=== PATIENT | female | born 1955 | race Caucasian/White ===

== ENCOUNTER 2016-05-23 10:21 | Outpatient (RCR) | payer MEDICARE, BC, OTHER ==
[~2016-05-23 10:21] MED LIST: AMBIEN10 MG PO; CELEXA20 MG PO; ENBREL50 MG/ML SC; FOLIC ACID1 MG PO; IRON325 M1 PO; METHOTREXATE S2.5 MG PO; MULTI VITAMINS1 TAB PO; NATURE'S BLEND400 I1 PO; NORCO 325 MG-51 TA1 PO; ULTRAM50 MG PO; XANAX0.5 MG PO
--- NOTE | 2016-05-23 10:34 | NUR ---
ABN REVIEWED WITH PATIENT AND SIGNATURE RECEIVED. ORIGINAL GIVEN TO BRIA NORTH RN AND COPY PLACED TO OUTPATIENT CHART. COPY ALSO PROVIDED TO PATIENT.
[2016-05-23 10:36] VITALS: BP 112/69
[2016-05-23] MEDS ORDERED: ULTRAM50 M1 PO (10:57)
[2016-05-23] MEDS ORDERED: D-2000 90 MG-201 TAB PO (10:58)
[2016-05-23] MEDS ORDERED: CALCIUM CARBONATE PO (10:59)
[2016-05-23] MEDS ORDERED: CYMBALTA30 M1 PO (11:00)
[2016-05-23] MEDS ORDERED: XANAX0.5 M1 PO (11:00)
[2016-05-23 11:33] VITALS: BP 129/84
[2016-05-23 11:53] VITALS: BP 109/66
[2016-06-06 11:14] VITALS: BP 107/66
[2016-06-06] MEDS ORDERED: LITHIUM 30300 MG/CAP PO (11:19)
[2016-06-06] MEDS ORDERED: METHOTREXATE2.5 M1 PO (11:20)
[2016-06-06 12:13] VITALS: BP 115/69
[2016-07-02 13:35] VITALS: BP 108/69
[2016-07-02 14:39] VITALS: BP 101/54
[2016-08-15 11:14] VITALS: BP 122/78
[2016-08-15 12:28] VITALS: BP 110/70
== END 2016-08-21 | disposition home or self-care (01) ==
LOC: AMSURD
DX: M06.89 Other specified rheumatoid arthritis, multiple sites (principal)
CPT/HCPCS: J0129

== ENCOUNTER 2016-10-15 11:15 | Outpatient (RCR) | payer MEDICARE, OTHER ==
[~2016-10-15] VITALS: Ht 165.1 cm; Wt 72.7 kg
[~2016-10-15 11:15] MED LIST changes: -IRON 100 WITH V1 TAB PO
[2016-10-15 11:35] VITALS: BP 103/61
[2016-10-15 14:35] VITALS: BP 101/60
[2016-11-19 09:58] VITALS: BP 93/54
[2016-11-19 10:18] VITALS: BP 88/51
[2016-12-17 13:46] VITALS: BP 107/59
[2016-12-17 14:40] VITALS: BP 102/61
== END 2017-01-13 | disposition home or self-care (01) ==
LOC: AMSURD
DX: M06.89 Other specified rheumatoid arthritis, multiple sites (principal); F31.81 Bipolar II disorder
CPT/HCPCS: J0129

== ENCOUNTER → 2016-10-15 | Outpatient (CLI) | payer MEDICARE, OTHER ==
[~2016-10-15] MED LIST changes: +CALCIUM CARBONATE PO; +CYMBALTA30 M1 PO; +D-2000 90 MG-201 TAB PO; +IRON 100 WITH V1 TAB PO; +LITHIUM 30300 MG/CAP PO; +METHOTREXATE2.5 M1 PO; +ULTRAM50 M1 PO; +XANAX0.5 M1 PO
== END ==
LOC: LAB 11:12
DX: M06.89 Other specified rheumatoid arthritis, multiple sites (principal); F31.81 Bipolar II disorder

== ENCOUNTER → 2017-01-02 | Outpatient (CLI) | payer MEDICARE, OTHER ==
[2016-12-17 14:40] VITALS: BP 102/61
[~2017-01-02] MED LIST changes: +IRON 100 WITH V1 TAB PO
== END ==
LOC: LAB 16:04
DX: M06.89 Other specified rheumatoid arthritis, multiple sites (principal)

== ENCOUNTER 2017-01-14 14:50 | Outpatient (RCR) | payer MEDICARE, OTHER ==
[~2017-01-14] VITALS: Ht 165.1 cm; Wt 70.5 kg
[2017-01-14 14:24] VITALS: BP 106/67
[~2017-01-14 14:50] MED LIST changes: -IRON 100 WITH V1 TAB PO
[2017-01-14 15:43] VITALS: BP 106/65
[2017-02-25 13:50] VITALS: BP 122/58
[2017-02-25] MEDS ORDERED: IRON 100 WITH V1 TAB PO (14:24)
[2017-02-25 15:21] VITALS: BP 114/70
[2017-03-23 14:49] VITALS: BP 132/86
[2017-03-23 15:51] VITALS: BP 102/75
== END 2017-04-14 | disposition home or self-care (01) ==
LOC: AMSURD
DX: M06.89 Other specified rheumatoid arthritis, multiple sites (principal)
CPT/HCPCS: J0129

== ENCOUNTER 2017-04-24 13:24 | Outpatient (RCR) | payer MEDICARE, OTHER ==
[~2017-04-24] VITALS: Ht 165.1 cm; Wt 68.2 kg
[~2017-04-24 13:24] MED LIST changes: -SENIOR TABS1 EACH PO
[2017-04-24] MEDS ORDERED: SENIOR TABS1 EACH PO (13:41)
[2017-04-24 13:44] VITALS: BP 135/86
[2017-04-24 14:40] VITALS: BP 116/70
[2017-05-22 16:35] VITALS: BP 129/76
[2017-05-22 17:09] VITALS: BP 118/65
[2017-07-13 16:30] VITALS: BP 120/76
[2017-07-13] MEDS ORDERED: LITHIUM CARB300 MG PO (16:39)
[2017-07-13] MEDS ORDERED: LAMOTRIGINE25 M1 PO (16:40)
[2017-07-13 18:09] VITALS: BP 128/65
== END 2017-07-23 | disposition home or self-care (01) ==
LOC: AMSURD
DX: M06.89 Other specified rheumatoid arthritis, multiple sites (principal)
CPT/HCPCS: J0129

== ENCOUNTER → 2017-04-24 | Outpatient (CLI) | payer MEDICARE, OTHER ==
[~2017-04-24] MED LIST changes: +IRON 100 WITH V1 TAB PO; +SENIOR TABS1 EACH PO
== END ==
LOC: LAB 13:26
DX: F31.81 Bipolar II disorder (principal)

== ENCOUNTER 2017-06-24 09:48 | Outpatient (RCR) | payer MEDICARE, OTHER ==
[~2017-06-24 09:48] MED LIST changes: +SENIOR TABS1 EACH PO
== END 2017-06-25 12:51 ==
LOC: OPPGERO 09:48
DX: F31.32 Bipolar disorder, current episode depressed, moderate (principal)

== ENCOUNTER 2017-06-26 09:00 | Outpatient (RCR) | payer MEDICARE, OTHER ==
[2017-07-13] MEDS ORDERED: LITHIUM CARB300 MG PO (16:39)
[2017-07-13] MEDS ORDERED: LAMOTRIGINE25 M1 PO (16:40)
== END 2017-07-24 15:28 ==
LOC: OPPGERO 09:00
DX: F31.32 Bipolar disorder, current episode depressed, moderate (principal)

== ENCOUNTER 2017-07-28 09:00 | Outpatient (RCR) | payer MEDICARE, OTHER ==
[~2017-07-28 09:00] MED LIST changes: +LAMOTRIGINE25 M1 PO; +LITHIUM CARB300 MG PO
[2017-08-17] MEDS ORDERED: ORENCIA250 MG (16:25)
== END 2017-08-26 15:18 ==
LOC: OPPGERO 09:00
DX: F31.32 Bipolar disorder, current episode depressed, moderate (principal)

== ENCOUNTER 2017-08-17 16:16 | Outpatient (RCR) | payer MEDICARE, OTHER ==
[~2017-08-17] VITALS: Ht 165.1 cm; Wt 68.2 kg
[2017-08-17 16:10] VITALS: BP 121/77
[~2017-08-17 16:16] MED LIST changes: +LAMICTAL 100MG100 MG PO; -LAMOTRIGINE25 M1 PO
[2017-08-17] MEDS ORDERED: ORENCIA250 MG (16:25)
[2017-08-17 17:00] VITALS: BP 106/58
[2017-08-17 18:00] VITALS: BP 106/58
[2017-10-21 16:08] VITALS: BP 124/75
[2017-10-21 17:38] VITALS: BP 120/72
== END 2017-11-15 | disposition home or self-care (01) ==
LOC: AMSURD
DX: M06.9 Rheumatoid arthritis, unspecified (principal)
CPT/HCPCS: J0129

== ENCOUNTER 2017-08-27 09:54 | Outpatient (RCR) | payer MEDICARE, OTHER ==
[~2017-08-27 09:54] MED LIST changes: -LAMICTAL 100MG100 MG PO; +LAMOTRIGINE25 M1 PO; +ORENCIA250 MG
== END 2017-09-23 14:13 ==
LOC: OPPGERO 09:54
DX: F31.32 Bipolar disorder, current episode depressed, moderate (principal); M06.9 Rheumatoid arthritis, unspecified

== ENCOUNTER 2017-09-24 09:57 | Outpatient (RCR) | payer MEDICARE, OTHER ==
[~2017-09-24 09:57] MED LIST changes: +LAMICTAL 100MG100 MG PO; -LAMOTRIGINE25 M1 PO
== END 2017-10-23 11:14 ==
LOC: OPPGERO 09:57
DX: F31.32 Bipolar disorder, current episode depressed, moderate (principal); M06.9 Rheumatoid arthritis, unspecified

== ENCOUNTER 2017-10-26 08:30 | Outpatient (RCR) | payer MEDICARE, OTHER | END 2017-11-23 13:10 | LOC: OPPGERO 08:30 | DX: F31.32 Bipolar disorder, current episode depressed, moderate (principal); M06.9 Rheumatoid arthritis, unspecified ==

== ENCOUNTER → 2017-11-11 | Outpatient (CLI) | payer MEDICARE, OTHER ==
[2017-10-21 17:38] VITALS: BP 120/72
== END ==
LOC: LAB 15:54
DX: N39.0 Urinary tract infection, site not specified (principal)

== ENCOUNTER 2017-11-18 16:09 | Outpatient (RCR) | payer MEDICARE, OTHER ==
[~2017-11-18] VITALS: Ht 165.1 cm; Wt 68.2 kg
[2017-11-18 16:00] VITALS: BP 120/72
[2017-11-18 17:20] VITALS: BP 104/62
[2018-01-06 17:43] VITALS: BP 114/72; BP 115/84
[2018-01-06 17:48] VITALS: BP 113/74; BP 115/84
[2018-02-05 16:12] VITALS: BP 113/67
[2018-02-05 17:52] VITALS: BP 113/68
== END 2018-02-16 | disposition home or self-care (01) ==
LOC: AMSURD
DX: M06.9 Rheumatoid arthritis, unspecified (principal)
CPT/HCPCS: J0129

== ENCOUNTER 2017-11-24 08:28 | Outpatient (RCR) | payer MEDICARE, OTHER | END 2017-12-24 13:32 | LOC: OPPGERO 08:28 | DX: F31.32 Bipolar disorder, current episode depressed, moderate (principal); M06.9 Rheumatoid arthritis, unspecified; Z79.899 Other long term (current) drug therapy ==

== ENCOUNTER 2017-12-25 08:10 | Outpatient (RCR) | payer MEDICARE, OTHER | END 2018-01-22 13:04 | LOC: OPPGERO 08:10 | DX: F31.32 Bipolar disorder, current episode depressed, moderate (principal); M06.9 Rheumatoid arthritis, unspecified; Z79.899 Other long term (current) drug therapy ==

== ENCOUNTER 2018-01-25 09:17 | Outpatient (RCR) | payer MEDICARE, OTHER ==
[2018-01-06 17:48] VITALS: BP 113/74
== END 2018-02-24 ==
LOC: OPPGERO
DX: F31.32 Bipolar disorder, current episode depressed, moderate (principal); M06.9 Rheumatoid arthritis, unspecified; K57.90 Diverticulosis of intestine, part unspecified, without perforation or abscess without bleeding; Z79.899 Other long term (current) drug therapy

== ENCOUNTER 2018-03-17 15:08 | Outpatient (RCR) | payer MEDICARE, OTHER ==
[~2018-03-17] VITALS: Ht 165.1 cm; Wt 68.2 kg
[2018-03-17 15:18] VITALS: BP 109/65
[2018-03-17 16:54] VITALS: BP 126/76
== END 2018-06-15 | disposition home or self-care (01) ==
LOC: AMSURD
DX: M06.89 Other specified rheumatoid arthritis, multiple sites (principal)
CPT/HCPCS: J0129

== ENCOUNTER 2018-12-21 10:56 | Outpatient (RCR) | payer MEDICARE, OTHER ==
[2018-10-20 13:30] VITALS: BP 148/81
[2018-10-20 15:45] VITALS: BP 113/67
[2018-11-19 09:30] VITALS: BP 131/75
[2018-11-19 11:27] VITALS: BP 133/85
[~2018-12-21] VITALS: Ht 165.1 cm; Wt 68.2 kg
[~2018-12-21 10:56] MED LIST changes: +CAL MAG ZINC +1 EACH PO; -METHOTREXATE2.5 M1 PO; +METHOTREXATE2.5 MG PO
[2018-12-21 11:47] VITALS: BP 106/76
[2018-12-21 12:41] VITALS: BP 112/66
== END 2019-01-18 | disposition still patient (30) ==
LOC: AMSURD
DX: M06.89 Other specified rheumatoid arthritis, multiple sites (principal)
CPT/HCPCS: J0129

== ENCOUNTER → 2019-02-16 | Outpatient (CLI) | payer MEDICARE, OTHER ==
[2019-02-16 09:05] LABS: EOS # 0.1 (0.04-0.40); EOS % 2.3 % (1.0-5.0); HEMATOCRIT 39.9 % (37.0-47.0); HEMOGLOBIN 12.7 g/dL (12.5-16.0); LYMPH# 1.7 (1.50-4.00); MEAN CELL VOLUME 88 fl (78-100); MEAN CORPUSCULAR HEMOGLOBIN 28 pg (27-31); MEAN CORPUSCULAR HGB CONC 32 g/dL (33-37); MEAN PLATELET VOLUME 9.6 fl (7.4-10.4); MONO # 0.4 (0.20-0.80); NEU # 2.6 (1.40-6.50); PLATELET COUNT 306 K/mm3 (130-400); RED BLOOD COUNT 4.53 M/mm3 (4.10-5.30); RED CELL DISTRIBUTION WIDTH 15.9 % (11.5-14.5); WHITE BLOOD COUNT 4.8 K/mm3 (4.8-10.8)
[2019-02-16 09:40] LABS: ALBUMIN 4.1 g/dL (3.4-4.8); POTASSIUM 4.5 mmol/L (3.5-5.1)
[2019-02-16 09:41] LABS: CALCIUM 9.7 mg/dL (8.3-10.5)
[2019-02-16 09:43] LABS: TOTAL PROTEIN 6.8 g/dL (6.2-8.1)
[2019-02-16 09:44] LABS: TOTAL BILIRUBIN 0.4 mg/dL (0.2-1.2)
== END ==
LOC: LAB 08:52
PROVIDERS: Family Medicine
DX: Z00.00 Encounter for general adult medical examination without abnormal findings (principal); M06.9 Rheumatoid arthritis, unspecified; E55.9 Vitamin D deficiency, unspecified; R53.83 Other fatigue

== ENCOUNTER 2019-02-26 12:06 | Outpatient (RCR) | payer MEDICARE, OTHER ==
[~2019-02-26] VITALS: Ht 165.1 cm; Wt 68.2 kg
[2019-02-26 12:17] VITALS: BP 122/59
[2019-02-26 13:49] VITALS: BP 118/68
[2019-03-20] MEDS ORDERED: BACTRIM DS TAB1 EACH PO (14:09)
== END 2019-05-27 | disposition still patient (30) ==
LOC: AMSURD
DX: M06.89 Other specified rheumatoid arthritis, multiple sites (principal)
CPT/HCPCS: J0129

== ENCOUNTER → 2019-03-02 | Outpatient (CLI) | payer MEDICARE, OTHER ==
[2019-02-26 13:49] VITALS: BP 118/68
== END ==
LOC: RAD 13:02 → MAMMO 13:45
DX: Z13.820 Encounter for screening for osteoporosis (principal); M85.851 Other specified disorders of bone density and structure, right thigh; M85.852 Other specified disorders of bone density and structure, left thigh

== ENCOUNTER → 2019-03-10 | Day surgery (SDC) | payer MEDICARE, OTHER ==
[2019-02-26 13:49] VITALS: BP 118/68
== END ==
LOC: MSO 08:34
DX: Z12.11 Encounter for screening for malignant neoplasm of colon (principal); F41.9 Anxiety disorder, unspecified; M06.9 Rheumatoid arthritis, unspecified; Z90.710 Acquired absence of both cervix and uterus; J30.2 Other seasonal allergic rhinitis; G89.29 Other chronic pain; M81.0 Age-related osteoporosis without current pathological fracture; G47.33 Obstructive sleep apnea (adult) (pediatric); F41.1 Generalized anxiety disorder; K64.9 Unspecified hemorrhoids
CPT/HCPCS: 00812; J2704; J7120

== ENCOUNTER 2019-03-20 13:19 | Emergency (ER) | payer MEDICARE, OTHER ==
[~2019-03-20] VITALS: Ht 167.6 cm; Wt 72.7 kg
[2019-03-20] MEDS ORDERED: BACTRIM DS TAB1 EACH PO (14:09)
[2019-03-20 14:20] VITALS: BP 101/57
== END 2019-03-20 14:30 | disposition home or self-care (01) ==
LOC: ED 13:19
DX: L03.114 Cellulitis of left upper limb (principal); Z87.891 Personal history of nicotine dependence
CPT/HCPCS: J0696